=== PATIENT | male | born 1985 | race Asian ===

== ENCOUNTER 2019-09-30 18:12 | Emergency (ER) | payer MEDICAID ==
[~2019-09-30] VITALS: Ht 167.6 cm; Wt 86.2 kg
[~2019-09-30 18:12] MED LIST: IBUPROFEN600 MG ORAL; TASIGNA150 MG PO
--- NOTE | 2019-09-30 18:35 | NUR ---
ED Nurse Note: pt presents with nausea. pt relates he has been taking doses of colchicine for gout pain. states he feels he took too many and now causing his s/s.
[2019-09-30] MEDS ORDERED: MAALOX MAXIMUM355 M1 PO (18:49)
[2019-09-30] MEDS ORDERED: FAMOTIDINE20 MG ORAL (18:49)
--- NOTE | 2019-09-30 18:55 | NUR ---
ER DISCHARGE NOTE: Patient is cleared to be discharged per ERMD, pt is aox4, on room air, with stable vital signs. pt was given dc and prescription instructions, pt was able to verbalize understanding, pt id band removed. pt is able to ambulate with steady gait. pt took all belongings.
--- NOTE | 2019-09-30 19:00 | Emergency Room Report ---
History of Present Illness General Chief Complaint: Nausea Source: Patient Present Illness HPI Patient presents with complaints of epigastric discomfort and nausea After taking multiple colchicine pills Patient reports that he has history of gout his left foot was flaring up and he took his father's colchicine soon after starting to have some discomfort in the epigastric area Denies any vomiting denies any lower abdominal pain patient also reports that he has CML And has recently stopped his medications for that secondary to orders from his primary physician Denies any rash denies any diarrhea Allergies: Coded Allergies: No Known Allergies (Unverified , 11/03/15) Patient History Past Medical History: see triage record Reviewed Nursing Documentation: PMH: Agreed; PSxH: Agreed Nursing Documentation-PMH Past Medical History: No History, Except For Hx Cancer: Yes - leukemia Review of Systems All Other Systems: negative except mentioned in HPI Physical Exam Vital Signs Date Time Temp Pulse Resp B/P (MAP) Pulse Ox O2 Delivery O2 Flow Rate FiO2 09/30/19 18:32 98.1 66 20 144/91 (108) 96 Room Air Sp02 EP Interpretation: reviewed, normal General Appearance: well appearing, no apparent distress Head: normocephalic, atraumatic Eyes: bilateral eye PERRL, bilateral eye EOMI ENT: hearing grossly normal, normal pharynx, TMs + canals normal, uvula midline Neck: full range of motion, supple, no meningismus, no bony tend Respiratory: lungs clear, normal breath sounds, no rhonchi, no respiratory distress, no retraction, no accessory muscle use Cardiovascular #1: normal peripheral pulses, regular rate, rhythm, no edema, no gallop, no JVD, no murmur Gastrointestinal: normal bowel sounds, non tender, soft, no mass, no organomegaly, non-distended, no guarding, no hernia, no pulsatile mass, no rebound Genitourinary: no CVA tenderness Musculoskeletal: normal inspection Neurologic: motor strength/tone normal, director counseling [employer] III-XII nml as tested, oriented x3 , sensory intact, responsive Psychiatric: mood/affect normal Skin: no rash Lymphatic: normal inspection, no adenopathy Medical Decision Making Diagnostic Impression: Primary Impression: Nausea alone Additional Impression: medication reaction ER Course With the history exam and presentation, multiple differentials considered, including but not limited to appendicitis, gastritis, cholecystitis, diverticulitis Patient has a soft and benign abdominal exam appears to have fairly close correlation with ingestion of the medications and Epigastric discomfort patient was given Medication here and will have initial conservative outpatient trial and return with any changes or concerns Last Vital Signs Date Time Temp Pulse Resp B/P (MAP) Pulse Ox O2 Delivery O2 Flow Rate FiO2 09/30/19 18:32 98.1 66 20 144/91 (108) 96 Room Air Status: improved Disposition: HOME, SELF-CARE Condition: Improved Scripts Mag Hydrox/Al Hydrox/Simeth (MAALOX MAXIMUM STRENGTH SUSP) 355 Ml Oral.susp 10 ML PO BID for 5 Days, ML Prov: Petr Milner DO 09/30/19 Famotidine* (Pepcid 20mg tablet*) 20 Mg Tablet 20 MG ORAL DAILY, #12 TAB 0 Refills Prov: Petr Milner DO 09/30/19 Referrals: PMD Patient Instructions: Nausea, Adult, Gastritis, Adult, [id number] Additional Instructions: Patient is provided with the discharge instructions notified to follow up with primary doctor in the next 2-3 days otherwise return to the er with any worsening symptoms. Please note that this report is being documented using [employer] technology. This can lead to erroneous entry secondary to incorrect interpretation by the dictating instrument. Petr Milner DO Sep 30, 2019 19:00
[2019-09-30 19:35] VITALS: BP 144/91
== END 2019-09-30 20:30 | disposition home or self-care (01) ==
LOC: EMR 20:30
DX: R11.0 Nausea (principal); R10.13 Epigastric pain; Z85.6 Personal history of leukemia
CPT/HCPCS: 99282